=== PATIENT | female | born 1955 | race Caucasian/White ===

== ENCOUNTER 2018-09-29 13:14 | Emergency (ER) | payer SELFPAY ==
--- NOTE | 2018-09-29 13:56 | UC ---
Back Pain HPI - HPI Summary HPI Summary: 62 year old woman, without specific injury but who works 16 hours per day as a [employer], with 2 week history of pain in the right trapezius area with radiation to the lower thoracic area. She has pain in the lumbar area as well. No falls, and she has not reported a work injury. Past history of cervical strain 2 years ago, which improved with physical therapy. Pain is not relieved with use of ibuprofen 800mg three times daily, which she has been using regularly. Has continued her demanding work schedule despite pain Cannot find a comfortable spot to lie in. - History of Current Complaint Chief Complaint: UCBackPain Stated Complaint: BACK PAIN Time Seen by Provider: 09/29/18 13:45 Hx Obtained From: Patient Onset/Duration: Gradual Onset, Lasting Weeks - 2 Timing: Constant Severity Initially: Moderate Severity Currently: Severe Pain Intensity: 10 Back Pain: Is Diffuse, Radiates To - both flanks. Character: Aching, Stiffness Aggravating Factor(s): Movement, Lifting, Bending, Walking Alleviating Factor(s): Rest, OTC Meds - minimal relief Associated Signs And Symptoms: Positive: Numbness - in hands, when driving.. Negative: Bladder Incontinence, Bowel Incontinence - Risk Factors AAA Risk Factors: Negative TAD Risk Factors: Negative Cauda Equina Risk Factors: Negative Epidural Abscess Risk Factors: Negative - Allergies/Home Medications Allergies/Adverse Reactions: Allergies Allergy/AdvReac Type Severity Reaction Status Date / Time cortisone Allergy Intermediate hives, pain Verified 09/29/18 13:43 PMH/Surg Hx/FS Hx/Imm Hx Previously Healthy: Yes - Surgical History Surgical History: Yes Surgery Procedure, Year, and Place: tubaligation - Family History Known Family History: Positive: Non-Contributory - Social History Occupation: Employed Full-time Lives: With Family Alcohol Use: None Substance Use Type: None Smoking Status (MU): Never Smoked Tobacco Review of Systems All Other Systems Reviewed And Are Negative: Yes Constitutional: Positive: Fatigue - works many hours, sleep disrupted. Skin: Positive: Negative Eyes: Positive: Negative ENT: Positive: Negative Respiratory: Positive: Cough - occasional Cardiovascular: Positive: Negative Gastrointestinal: Positive: Negative Genitourinary: Positive: Frequency. Negative: Dysuria, Hematuria Motor: Positive: Decreased ROM Neurovascular: Positive: Negative Neurological: Positive: Headache - diffuse headache associated with neck pain, Paresthesia - both hands Physical Exam Triage Information Reviewed: Yes Appearance: Ill-Appearing - looks fatigued and chronically unwell, older than stated age., Pain Distress - moderate Vital Signs: Initial Vital Signs Temp 98.2 F 09/29/18 13:36 Pulse 81 09/29/18 13:36 Resp 16 09/29/18 13:36 BP 140/91 09/29/18 13:36 Pulse Ox 98 09/29/18 13:36 Eyes: Positive: Conjunctiva Clear ENT: Positive: Pharynx normal Neck: Positive: Tenderness @ - right trapezius area Respiratory: Positive: Lungs clear, Normal breath sounds Cardiovascular: Positive: RRR, No Murmur Abdomen Description: Positive: No Organomegaly, Soft, CVA Tenderness (R), CVA Tenderness (L) Musculoskeletal Exam: Other - antalgic gait, exaggerated lumbar lordosis. Tenderness in right trapezius area, with decreased rom--decreased lateral bending and rotation. Lumbar spine with full range of motion with pain. No tenderness to palpation with spinal percussion Musculoskeletal: Positive: ROM Limited @ Neurological Exam: Other - mild wasting of thenar eminence of the right hand. Neurological: Positive: Alert, Muscle Tone Normal Psychological Exam: Other - mildly depressed mood and affect. Skin Exam: Normal Diagnostics - Laboratory Lab Results: Urine analyssis with trace of leuks-->cultured - Radiology No standard instances Radiology Interpretation Completed By: ED Physician Summary of Radiographic Findings: pending radiology read. Per MH, flat cervical curve; lumbar spine with diffuse degenerative change and osteophytes. Back Pain Course/Dx - Course Course Of Treatment: muscle relaxants, nsaid's and PT. Urine cultured. - Differential Dx/Diagnosis Provider Diagnosis: Cervical muscle strain, Lumbago Discharge - Sign-Out/Discharge Documenting (check all that apply): Patient Departure All imaging exams completed and their final reports reviewed: No - Discharge Plan Condition: Stable Disposition: HOME Prescriptions: Cyclobenzaprine TAB* [Flexeril 10 MG TAB*] 10 mg PO ONCE #30 tab Naproxen [Naproxen 500 mg tab] 500 mg PO BID #40 tablet Patient Education Materials: Cervical Strain (ED), Low Back Strain (ED), Lower Back Exercises (ED) Forms: *Work Release Referrals: Babar Lainez MD [Primary Care Provider] - Additional Instructions: For muscle stiffness, I suggest use of a muscle relaxant before sleep. This should improve sleep quality. You have a referral to physical therapy. Urine will be sent for culture; there is a small amount of white blood cells in the urine, but the remainder of the test is not highly suggestive of infection. If the culture is positive, you will get a call to arrange antibiotic treatment. Today's blood pressure reading was elevated; please ensure that you have a repeat reading within 2 weeks. - Billing Disposition and Condition Condition: STABLE Disposition: Home
--- NOTE | 2018-09-30 13:10 | ED ---
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 Course/Dx - Diagnoses Provider Diagnoses: Cervical muscle strain, Lumbago Discharge - Sign-Out/Discharge Documenting (check all that apply): Patient Departure All imaging exams completed and their final reports reviewed: Yes - Discharge Plan Condition: Stable Disposition: HOME Prescriptions: Cyclobenzaprine TAB* [Flexeril 10 MG TAB*] 10 mg PO ONCE #30 tab Naproxen [Naproxen 500 mg tab] 500 mg PO BID #40 tablet Patient Education Materials: Cervical Strain (ED), Low Back Strain (ED), Lower Back Exercises (ED) Forms: *Work Release Referrals: Babar Lainez MD [Primary Care Provider] - Additional Instructions: For muscle stiffness, I suggest use of a muscle relaxant before sleep. This should improve sleep quality. You have a referral to physical therapy. Urine will be sent for culture; there is a small amount of white blood cells in the urine, but the remainder of the test is not highly suggestive of infection. If the culture is positive, you will get a call to arrange antibiotic treatment. Today's blood pressure reading was elevated; please ensure that you have a repeat reading within 2 weeks. - Billing Disposition and Condition Condition: STABLE Disposition: Home
== END 2018-09-29 14:52 | disposition home or self-care (01) ==
LOC: UCCORT 13:14
DX: S16.1XXA Strain of muscle, fascia and tendon at neck level, initial encounter (principal); X58.XXXA Exposure to other specified factors, initial encounter; Y92.9 Unspecified place or not applicable; M54.5 Low back pain
CPT/HCPCS: 72050; 72110; 81003; 87086; 99202; G0463